=== PATIENT | male | born 1995 | race Caucasian/White ===

== ENCOUNTER 2017-04-18 09:14 | Emergency (ER) | payer OTHER ==
[2017-04-18 09:27] VITALS: BP 148/94
[2017-04-18 10:34] LABS: Hematocrit 42 % (42-52); Hemoglobin 14.2 g/dl (14.0-18.0); Mean Corpuscular HGB Conc 34 g/dl (31-36); Mean Corpuscular Hemoglobin 29 pg (27-31); Mean Corpuscular Volume 85 fL (80-94); Mean Platelet Volume 10 um3 (7.4-10.4); Red Blood Count 4.97 10^6/ul (4.0-5.4); Red Cell Distribution Width 13 % (10.5-15); White Blood Count 17.4 10^3/ul (3.5-10.8)
[2017-04-18 10:35] LABS: Add Diff/Slide Review? Slide Review Added; Comments Flag Yes
[2017-04-18 10:37] LABS: Urine Bilirubin Negative (Negative); Urine Glucose Negative (Negative); Urine Nitrite Negative (Negative)
[2017-04-18 10:45] LABS: ALT 19 U/L (7-52); AST 29 U/L (13-39); Albumin 4.6 g/dL (3.2-5.2); Alkaline Phosphatase 75 U/L (34-104); Anion Gap 10 mmol/L (2-11); BUN/Creatinine Ratio 8.2 (8-20); Blood Urea Nitrogen 7 mg/dL (6-24); CO2 Carbon Dioxide 23 mmol/L (22-32); Calcium 9.5 mg/dL (8.6-10.3); Chloride 101 mmol/L (101-111); EGFR Non-African American 112.7 (>60); Glucose 104 mg/dL (70-100); Potassium 3.3 mmol/L (3.5-5.0); Sodium 134 mmol/L (133-145); Total Protein 7.6 g/dL (6.4-8.9)
[2017-04-18 11:01] LABS: Platelet Morphology Large
[2017-04-18 11:05] LABS: Benzodiazepine Urine Screen None Detected (None Detect)
[2017-04-18 11:22] LABS: Acetaminophen < 15 mcg/mL; Alcohol < 10 mg/dL (<10); Salicylate < 2.50 mg/dL (<30)
[2017-04-18 11:40] LABS: TSH (Thyroid Stimulating Horm) 1.79 mcIU/mL (0.34-5.60)
--- NOTE | 2017-04-19 21:01 | ED ---
Yecenia Schuler Edward, scribed for Mikel Fernandez MD on 04/18/17 at 0930 . Psychiatric Complaint - HPI Summary HPI Summary: 22 y/o male presents to ED c/o acute on chronic depression and moderate anxiety aggravated by recent events (last night). [place] [place] being promised marijuana. The pt was coerced into a tent and stayed there overnight. The pt then broke the tent and the people in the tent yelled at him. They demanded that the pt pay them back and escorted him to the local [employer]. At the [employer], the talent development manager called the police. Denies SI, HI. PMHx depression and anxiety. - History Of Current Complaint Hx Obtained From: Patient Onset/Duration: Lasting Hours, Still Present, Worse Since - Last night Character: Depressed, Anxious Aggravating Factor(s): Recent Stress Alleviating Factor(s): Nothing Has Suicidal: Denies: Thoughts Has Homicidal: Denies: Thoughts - Allergies/Home Medications Allergies/Adverse Reactions: Allergies Allergy/AdvReac Type Severity Reaction Status Date / Time Red Dye Allergy Severe Hives Verified 04/18/17 09:27 Home Medications: Home Medications DULoxetine DR CAP* [Cymbalta CAP*] 30 mg PO DAILY 04/18/17 [History Confirmed ] Vitamin D 04/18/17 [History] PMH/Surg Hx/FS Hx/Imm Hx Previously Healthy: No Endocrine/Hematology History: Denies: Hx Diabetes Psychiatric History: Reports: Hx Anxiety, Hx Depression - Surgical History Surgery Procedure, Year, and Place: N/A - Family History Known Family History: Positive: Diabetes - Both parents - Social History Lives: Alone Alcohol Use: Occasionally Hx Substance Use: Yes Substance Use Type: Reports: Marijuana Hx Tobacco Use: Yes Smoking Status (MU): Current Every Day Smoker Review of Systems Constitutional: Negative Eyes: Negative ENT: Negative Cardiovascular: Negative Respiratory: Negative Gastrointestinal: Negative Genitourinary: Negative Musculoskeletal: Negative Skin: Negative Neurological: Negative Positive: Anxious, Depressed All Other Systems Reviewed And Are Negative: Yes Physical Exam - Summary Physical Exam Summary: GENERAL: Patient is a well-developed and nourished male who is lying comfortable in the stretcher. Patient is not in any acute respiratory distress. HEAD AND FACE: No signs of trauma. No ecchymosis, hematomas or skull depressions. No sinus tenderness. EYES: PERRLA, EOMI x 2, No injected conjunctiva, no nystagmus. EARS: Hearing grossly intact. Ear canals and tympanic membranes are within normal limits. MOUTH: Oropharynx within normal limits. NECK: Supple, trachea is midline, no adenopathy, no JVD, no carotid bruit, no c- spine tenderness, neck with full ROM. CHEST: Symmetric, no tenderness at palpation LUNGS: Clear to auscultation bilaterally. No wheezing or crackles. CVS: Regular rate and rhythm, S1 and S2 present, no murmurs or gallops appreciated. ABDOMEN: Soft, non-tender. No signs of distention. No rebound no guarding, and no masses palpated. Bowel sounds are normal. EXTREMITIES: FROM in all major joints, no edema, no cyanosis or clubbing. NEURO: Alert and oriented x 3. No acute neurological deficits. Speech is normal and follows commands. SKIN: Dry and warm Triage Information Reviewed: Yes Vital Signs On Initial Exam: Initial Vitals Temp Pulse Resp BP Pulse Ox 99.0 F 110 20 148/94 99 04/18/17 09:16 04/18/17 09:16 04/18/17 09:16 04/18/17 09:16 04/18/17 09:16 Vital Signs Reviewed: Yes Diagnostics - Vital Signs Vital Signs Temp Pulse Resp BP Pulse Ox 04/18/17 09:16 99.0 F 110 20 148/94 99 - Laboratory Lab Results: Lab Results 04/18/17 04/18/17 04/18/17 Range/Units 10:20 10:20 10:20 WBC 17.4 H (3.5-10.8) 10^3/ul RBC 4.97 (4.0-5.4) 10^6/ul Hgb 14.2 (14.0-18.0) g/dl Hct 42 (42-52) % MCV 85 (80-94) fL MCH 29 (27-31) pg MCHC 34 (31-36) g/dl RDW 13 (10.5-15) % Plt Count 202 (150-450) 10^3/ul MPV 10 (7.4-10.4) um3 Neut % (Auto) 80.6 (38-83) % Lymph % (Auto) 9.7 L (25-47) % [place] % (Auto) 9.0 (1-9) % Eos % (Auto) 0.1 (0-6) % Baso % (Auto) 0.6 (0-2) % Absolute Neuts (auto) 14.1 H (1.5-7.7) 10^3/ul Absolute Lymphs (auto) 1.7 (1.0-4.8) 10^3/ul Absolute Monos (auto) 1.6 H (0-0.8) 10^3/ul Absolute Eos (auto) 0 (0-0.6) 10^3/ul Absolute Basos (auto) 0.1 (0-0.2) 10^3/ul Absolute Nucleated RBC 0.01 10^3/ul Nucleated RBC % 0 Platelet Morphology Large Normal RBC Morphology Not Reportable Sodium 134 (133-145) mmol/L Potassium 3.3 L (3.5-5.0) mmol/L Chloride 101 (101-111) mmol/L Carbon Dioxide 23 (22-32) mmol/L Anion Gap 10 (2-11) mmol/L BUN 7 (6-24) mg/dL Creatinine 0.85 (0.67-1.17) mg/dL Est GFR ( Amer) 145.0 (>60) Est GFR (Non-Af Amer) 112.7 (>60) BUN/Creatinine Ratio 8.2 (8-20) Glucose 104 H (70-100) mg/dL Calcium 9.5 (8.6-10.3) mg/dL Total Bilirubin 0.60 (0.2-1.0) mg/dL AST 29 (13-39) U/L ALT 19 (7-52) U/L Alkaline Phosphatase 75 (34-104) U/L Total Protein 7.6 (6.4-8.9) g/dL Albumin 4.6 (3.2-5.2) g/dL Globulin 3.0 (2-4) g/dL Albumin/Globulin Ratio 1.5 (1-3) TSH 1.79 (0.34-5.60) mcIU/mL Urine Color Urine Appearance Urine pH (5-9) Ur Specific [place] (1.010-1.030) Urine Protein (Negative) Urine Ketones (Negative) Urine Blood (Negative) Urine Nitrate (Negative) Urine Bilirubin (Negative) Urine Urobilinogen (Negative) Ur Leukocyte Esterase (Negative) Urine Glucose (Negative) Salicylates < 2.50 (<30) mg/dL Urine Opiates Screen None detected (None Detect) Acetaminophen < 15 mcg/mL Ur Barbiturates Screen None detected (None Detect) Ur Phencyclidine Scrn None detected (None Detect) Ur Amphetamines Screen Presumptive positive H (None Detect) U Benzodiazepines Scrn None detected (None Detect) Urine Cocaine Screen None detected (None Detect) U Cannabinoids Screen None detected (None Detect) Serum Alcohol < 10 (<10) mg/dL 04/18/17 Range/Units 10:20 WBC (3.5-10.8) 10^3/ul RBC (4.0-5.4) 10^6/ul Hgb (14.0-18.0) g/dl Hct (42-52) % MCV (80-94) fL MCH (27-31) pg MCHC (31-36) g/dl RDW (10.5-15) % Plt Count (150-450) 10^3/ul MPV (7.4-10.4) um3 Neut % (Auto) (38-83) % Lymph % (Auto) (25-47) % [place] % (Auto) (1-9) % Eos % (Auto) (0-6) % Baso % (Auto) (0-2) % Absolute Neuts (auto) (1.5-7.7) 10^3/ul Absolute Lymphs (auto) (1.0-4.8) 10^3/ul Absolute Monos (auto) (0-0.8) 10^3/ul Absolute Eos (auto) (0-0.6) 10^3/ul Absolute Basos (auto) (0-0.2) 10^3/ul Absolute Nucleated RBC 10^3/ul Nucleated RBC % Platelet Morphology Normal RBC Morphology Sodium (133-145) mmol/L Potassium (3.5-5.0) mmol/L Chloride (101-111) mmol/L Carbon Dioxide (22-32) mmol/L Anion Gap (2-11) mmol/L BUN (6-24) mg/dL Creatinine (0.67-1.17) mg/dL Est GFR ( Amer) (>60) Est GFR (Non-Af Amer) (>60) BUN/Creatinine Ratio (8-20) Glucose (70-100) mg/dL Calcium (8.6-10.3) mg/dL Total Bilirubin (0.2-1.0) mg/dL AST (13-39) U/L ALT (7-52) U/L Alkaline Phosphatase (34-104) U/L Total Protein (6.4-8.9) g/dL Albumin (3.2-5.2) g/dL Globulin (2-4) g/dL Albumin/Globulin Ratio (1-3) TSH (0.34-5.60) mcIU/mL Urine Color Straw Urine Appearance Clear Urine pH 6.0 (5-9) Ur Specific [place] 1.004 L (1.010-1.030) Urine Protein Negative (Negative) Urine Ketones Negative (Negative) Urine Blood Negative (Negative) Urine Nitrate Negative (Negative) Urine Bilirubin Negative (Negative) Urine Urobilinogen Negative (Negative) Ur Leukocyte Esterase Negative (Negative) Urine Glucose Negative (Negative) Salicylates (<30) mg/dL Urine Opiates Screen (None Detect) Acetaminophen mcg/mL Ur Barbiturates Screen (None Detect) Ur Phencyclidine Scrn (None Detect) Ur Amphetamines Screen (None Detect) U Benzodiazepines Scrn (None Detect) Urine Cocaine Screen (None Detect) U Cannabinoids Screen (None Detect) Serum Alcohol (<10) mg/dL Result Diagrams: 04/18/17 10:20 04/18/17 10:20 Lab Statement: Any lab studies that have been ordered have been reviewed, and results considered in the medical decision making process. Course/Dx - Course Assessment/Plan: 22 y/o male presents to ED c/o acute on chronic depression and moderate anxiety aggravated by recent events (last night). [place] [place] after being promised marijuana. The pt was coerced into a tent and stayed there overnight. The pt then broke the tent and the people in the tent yelled at him. They demanded that the pt pay them back and escorted him to the local [employer]. At the [employer], the talent development manager called the police. Denies SI, HI. PMHx depression and anxiety. Pt is medically cleared and awaiting MHU evaluation. Pt will be discharged by Dr. Peter and has a f/u appointment at [facility]. - Differential Dx/Clinical Impression Differential Diagnosis/HQI/PQRI: Positive: Anxiety, Depression, Suicidal Ideation Provider Diagnosis: Depression Discharge - Discharge Plan Condition: Stable Disposition: HOME Referrals: [facility] [Outside] - 04/27/17 (Keep your appointment with Ricarda) [facility] - [facility] [Primary Care Provider] - The documentation as recorded by the Yecenia lopez Edward accurately reflects the service I personally performed and the decisions made by , Mikel Fernandez MD.
== END 2017-04-18 13:24 | disposition home or self-care (01) ==
LOC: ED 09:14
DX: F41.8 Other specified anxiety disorders (principal); F32.9 Major depressive disorder, single episode, unspecified; F17.210 Nicotine dependence, cigarettes, uncomplicated
CPT/HCPCS: 36415; 80053; 80307; 80320; 80329; 81003; 84443; 85025; 99283; G0480